=== PATIENT | female | born 1980 | race American Indian/Alaskan Native ===

== ENCOUNTER 2018-07-08 14:49 | Outpatient (CLI) | payer MEDICAID ==
[2018-07-08 15:46] LABS: Bilirubin,Urine NEG (Negative); Blood,Urine NEG (Negative); Color,Urine Straw (Yellow); Protein,Urine <15 mg/dL mg/dL (Negative); Urobilinogen,Urine < 2.0 mg/dL (<2.0)
[2018-07-08 15:48] LABS: WBC,Urine < 1.0 /HPF (0.0-6.0)
[2018-07-08] MEDS ORDERED: LACTATED RINGERS 1,000 ML IV ONE (20:00)
--- NOTE | 2018-07-08 20:42 | Progress Note ---
Assessment and Plan A: at 38 weeks, 4 days gestation. False labor. Urinary frequency and dysuria. P: Not in active labor. IV hydration provided. Reactive NST, BPP /. Rx Augmentin 500 mg po BID for 7 days. Advised daily movement counting. Signs of labor discussed with pt. Warning signs of late discussed with pt. Keep scheduled follow up appointment with [facility]. Subjective - Subjective Date of service: 07/08/18 Principal diagnosis: at 38 weeks, 4 days gestation Interval history: 38 weeks, 4 days gestation. Presents to rule out labor. Patient reports urinary frequency and dysuria, thinks she has a UTI. Patient reports active movement. Denies leaking of fluid or vaginal bleeding or vaginal discharge. Patient of [facility] and has a follow up appointment there on Tuesday (2 days). Denies fever, chills, malaise, or flank pain. Patient reports: movement normal, contractions, no loss of fluid, no vaginal bleeding Objective - Vital Signs Vital Signs: Vital Signs - 12hr 07/08/18 16:56 Temperature 98.1 F Respiratory 16 Rate - Exam Abdomen: Present: normal appearance, soft. Absent: distention, tenderness, guarding, rigidity Uterus: Present: normal, firm, fundal height above umbilicus. Absent: tenderness FHR: category 1 Uterine Contraction Monitor Mode: External Cervical Dilatation: 2 Cervical Effacement Percentage: 50 station: -3 Uterine Contraction Pattern: Irregular Uterine Contraction Intensity: Mild Extremities: normal - Labs Labs: Abnormal Labs 07/08/18 15:16 Ur Specific [place] 1.002 L Laboratory Results - last 24 hr 07/08/18 15:16 Urine Color Straw Urine Turbidity Clear Urine pH 7.0 Ur Specific [place] 1.002 L Urine Protein <15 mg/dl Urine Glucose (UA) Neg Urine Ketones Neg Urine Blood Neg Urine Nitrite Neg Urine Bilirubin Neg Urine Urobilinogen < 2.0 Ur Leukocyte Esterase Neg Urine WBC (Auto) < 1.0 Urine RBC (Auto) 2.0 U Epithel Cells (Auto) 1.0
--- NOTE | 2018-07-08 21:39 | Ultrasound Report ---
PROCEDURE: US OB BPP WO NON-STRESS TECHNIQUE: OB ultrasound for biophysical profile obtained. HISTORY: well being COMPARISONS: None FINDINGS: Single IUP visualized. Viable fetus with heart rate of 137 bpm. Biophysical profile is 8/8. IMPRESSION: Biophysical profile is 8/8.. This document is electronically signed by Viet Mack MD., Jul 08 2018 09:38:00 PM ET
--- NOTE | 2018-07-08 21:55 | Ultrasound Report ---
PROCEDURE: US OB FOLLOW UP TECHNIQUE: Real-time limited sonographic examination was performed for evaluation of placenta for ea ch fetus with image documentation (1 or more fetuses). HISTORY: EFW, SÁNCHEZ COMPARISONS: None . FINDINGS: FETUS IUP: Single living intrauterine . Position: Cephalic . Placental position: Anterior, without previa . Amniotic fluid volume: Normal Heart rate and rhythm: 137 BPM, Regular . anatomic survey: Not performed . MEASUREMENTS BPD: 9.3 cm corresponding to 37 weeks and 4 days . HC: 32.9 cm corresponding to 37 weeks and 2 days . AC: 34.4 cm corresponding to 38 weeks and 2 days . FL: 7.4 cm corresponding to 37 weeks and 6 days . Mean Gestational Age (composite criteria): 37 weeks and 5 days . Ratio biometry: Normal . Estimated Weight: 3362 grams +/- grams. ounces +/- .ounces. percentile. Interval growth: Appropriate . Estimated Due Date (earliest scan): 07/24/2018 . IMPRESSION: 1. Single living intrauterine gestation at approximately 37 weeks and 5 days . 2. EDC by US 07/24/2018 . This document is electronically signed by Amandeep Hdz MD., Jul 08 2018 09:53:22 PM ET
== END 2018-07-08 20:26 | disposition home or self-care (01) ==
LOC: TRG 14:49
PROVIDERS: ATTEND Obstetrics & Gynecology
DX: O26.893 Other specified pregnancy related conditions, third trimester (principal); N23 Unspecified renal colic; R25.2 Cramp and spasm; R35.0 Frequency of micturition; Z3A.38 38 weeks gestation of pregnancy
CPT/HCPCS: 59025; 76816; 76819; 81001; 96360; J7120

== ENCOUNTER 2018-07-20 19:14 | Inpatient (IN) | payer MEDICAID ==
[2018-07-20] MEDS ORDERED: STADOL IV PRN ×2 (22:10)
[2018-07-20] MEDS ORDERED: AMPICILLIN/NS 2 GM/100 ML 2 GM/100 ML BAG IV ONE (22:10)
[2018-07-20] MEDS ORDERED: BRETHINE IVP PRN (22:10)
[2018-07-20] MEDS ORDERED: MINERAL OIL PO PRN (22:10)
[2018-07-20] MEDS ORDERED: SUBLIMAZE IV PRN (22:10)
[2018-07-20] MEDS ORDERED: XYLOCAINE 2% INFILTRATI ONE (22:10)
[2018-07-20] MEDS ORDERED: BRETHINE SUB-Q PRN (22:10)
[2018-07-20] MEDS ORDERED: PITOCin/NS 30 UNIT/500ML 30 UNITS/500 ML BAG IV SCH (22:12)
[2018-07-20] MEDS ORDERED: PITOCin/NS 20 UNIT/1000ML DRIP 20 UNITS/1,000 ML BAG IV SCH (23:00)
[2018-07-20] MEDS: LACTATED RINGERS 1,000 ML IV SCH (23:05)
[2018-07-20 23:06] LABS: Hematocrit 35.9 % (30.3-42.9); Hemoglobin 11.9 gm/dl (10.1-14.3); Mean Corpuscular HGB Conc 33 % (30-34); Mean Corpuscular Volume 91 fl (79-97); Platelet Count 154 K/mm3 (140-440); Red Blood Count 3.96 M/mm3 (3.65-5.03); Red Cell Distribution Width 16.1 % (13.2-15.2)
[2018-07-21] MEDS: AMPICILLIN/NS 1 GM/50 ML 1 GM/50 ML BAG IV SCH ×2 (03:57→07:35)
[2018-07-21] MEDS: LACTATED RINGERS 1,000 ML IV SCH ×3 (06:10→18:02)
[2018-07-21] MEDS ORDERED: NARCAN 2 MG/2 ML IV PRN (06:56)
--- NOTE | 2018-07-21 06:56 | Anesthesia Consultation ---
Anesthesia Consult and Med Hx Date of service: 07/21/18 - Airway Anesthetic Teeth Evaluation: Good ROM Head & Neck: Adequate Mental/Hyoid Distance: Adequate Mallampati Class: Class I Intubation Access Assessment: Good - Pulmonary Exam CTA: Yes - Cardiac Exam Cardiac Exam: RRR - Pre-Operative Health Status ASA Pre-Surgery Classification: ASA2 Proposed Anesthetic Plan: Epidural - Pulmonary Hx Asthma: No - Cardiovascular System Hx Hypertension: No - Central Nervous System Hx Seizures: No Hx Psychiatric Problems: No - Endocrine Hx Renal Disease: No Hx Hypothyroidism: No Hx Hyperthyroidism: No - Hematic Hx Anemia: Yes Hx Sickle Cell Disease: No - Other Systems Hx Alcohol Use: No
[2018-07-21] MEDS ORDERED: fentaNYL-BUPIV 2 MCG/ML-0.125% 200 MCG/100 ML BAG EPIDURAL SCH (07:00)
--- NOTE | 2018-07-21 07:51 | Anesthesia Day of Surgery ---
Anesthesia Day of Surgery - Day of Surgery Patient Examined: Yes Patient H&P Reviewed: Yes Patient is NPO: Yes Beta Blockers: No Cardiac Clearance: No Pulmonary Clearance: No Cordell's Test: N/A
--- NOTE | 2018-07-21 07:54 | Post Anesthesia Evaluation ---
- Post Anesthesia Evaluation Patient Participated: Yes Airway Patent: Yes Stable Respiratory Function: Yes Nausea/Vomiting: No Temp > 96.8F: Yes Pain Manageable: Yes Adequeate Hydration: Yes Anesthesia Complications: No Block Receding Appropriately: Yes Patient on Ventilator: No
--- NOTE | 2018-07-21 09:55 | History and Physical Report ---
History of Present Illness Date of examination: 07/21/18 Date of admission: 07/20/18 20:03 Chief complaint: My water broke History of present illness: 37 yo AA Fe , ALYSSIA 07/18/18 (per pt; Records not available); 40 weeks 3 days, presents with report SROM 07/20 @17:40 clear fluid and contractions. Pt reports early and consistent care with [facility]. Records not available. Will request. Pt denies any any complications with . Reports unremarkable. GBS status unknown. Past History Past Medical History: no pertinent history Past Surgical History: no surgical history (Denies) [employer] History: other (Pt denies any STI or abnormal pap). denies: abnormal PAP smear, chlamydia, gonorrhea, hepatitis B, hepatitis C, herpes, HIV, syphilis, trichomonas Family/Genetic History: none Social history: no significant social history, single, lives with family, full code. denies: smoking, alcohol abuse, prescription drug abuse, IV drug use - Obstetrical History Expected Date of Delivery: 07/18/18 Actual Gestation: 40 Week(s) 3 Day(s) : 7 Para: 3 Hx # Term Pregnancies: 3 Number of Pregnancies: 0 Spontaneous Abortions: 0 Induced : 3 Number of Living Children: 3 Medications and Allergies Allergies Allergy/AdvReac Type Severity Reaction Status Date / Time No Known Allergies Allergy Unverified 07/08/18 14:51 Home Medications Medication Instructions Recorded Confirmed Last Taken Type No Known Home Medications [No 07/08/18 07/08/18 Unknown History Reported Home Medications] Active Meds: Active Medications Butorphanol Tartrate (Stadol) 2 mg IV Q2H PRN PRN Reason: Pain , Severe (7-10) Last Admin: 07/21/18 05:49 Dose: 2 mg Documented by: Butorphanol Tartrate (Stadol) 1 mg IV Q2H PRN PRN Reason: Pain, Moderate (4-6) Ephedrine Sulfate (Ephedrine Sulfate) 10 mg IV Q2M PRN PRN Reason: Hypotension Ephedrine Sulfate (Ephedrine Sulfate) 10 mg IV Q2M PRN PRN Reason: Hypotension Fentanyl (Sublimaze) 100 mcg IV Q2H PRN PRN Reason: Labor Pain Oxytocin/Sodium Chloride (Pitocin/Ns 20 Unit/1000ml Drip) 20 units in 1,000 mls @ 125 mls/hr IV DIRECT BRAXTON Oxytocin/Sodium Chloride (Pitocin/Ns 30 Unit/500ml) 30 units in 500 mls @ 4 mls/hr IV TITR BRAXTON; Protocol Last Admin: 07/20/18 23:06 Dose: 4 ml/hr, 4 mls/hr Documented by: Lactated Ringer's (Lactated Ringers) 1,000 mls @ 125 mls/hr IV DIRECT BRAXTON Last Admin: 07/21/18 06:10 Dose: 125 mls/hr Documented by: Ampicillin Sodium (Ampicillin/Ns 1 Gm/50 Ml) 1 gm in 50 mls @ 100 mls/hr IV Q4HR BRAXTON; Protocol Last Admin: 07/21/18 07:35 Dose: 100 mls/hr Documented by: Fentanyl/Bupivacaine/Sodium Chlor (Fentanyl-Bupiv 2 Mcg/Ml-0.125%) 200 mcg in 100 mls @ 12 mls/hr EPIDURAL TITR BRAXTON; Protocol Last Admin: 07/21/18 07:38 Dose: 12 mls/hr Documented by: Mineral Oil (Mineral Oil) 30 ml PO QHS PRN PRN Reason: Constipation Naloxone HCl (Narcan 2 Mg/2 Ml) 0.2 mg IV Q5M PRN PRN Reason: Respiratory sedation Terbutaline Sulfate (Brethine) 0.25 mg SUB-Q ONCE PRN PRN Reason: Hyperstimulation/Hypertonicity Terbutaline Sulfate (Brethine) 0.25 mg IVP ONCE PRN PRN Reason: Hyperstimulation/Hypertonicity Review of Systems Eyes: normal appearance Cardiovascular: no chest pain, no shortness of breath Respiratory: no shortness of breath Breasts: normal Gastrointestinal: abdominal pain (Contractions), no nausea, no vomiting, no diarrhea, no constipation Genitourinary: normal appearance, leakage of fluid (Reports SROM 07/20/18 @ 17:40), contractions, no vaginal bleeding, no genital sores Integumentary: no rash, no sores, no lesions - Vital Signs Vital signs: Vital Signs Temp Resp 98.7 F 18 07/20/18 23:42 07/20/18 23:42 Temp Pulse Resp BP Pulse Ox 98.7 F 71 18 112/76 100 07/20/18 23:42 07/21/18 09:45 07/20/18 23:42 07/21/18 09:34 07/21/18 09:45 - Physical Exam Breasts: Positive: normal Cardiovascular: Regular rate, Normal S1, Normal S2, No murmurs Lungs: Positive: Clear to auscultation, Normal air movement Abdomen: Positive: normal appearance, soft. Negative: distention Genitourinary (Female): Positive: normal external genitalia, normal perenium Vulva: both: normal Vagina: Positive: normal moisture Uterus: Positive: enlarged (gravid) Anus/Rectum: Positive: normal perianal skin Extremities: Positive: normal - Obstetrical FHR: category 1 Uterine Contraction Monitor Mode: External Cervical Dilatation: 7 (Buldging BOW. No fluid noted. AROM lg amt clear fluid with exam) Cervical Effacement Percentage: 90 station: -1 Uterine Contraction Frequency (min): 2-4 Uterine Contraction Pattern: Regular Uterine Tone Measurement Phase: Resting Uterine Contraction Intensity: Strong/Firm Results Result Diagrams: 07/20/18 22:35 Abnormal lab results 07/20/18 Range/Units 22:35 RDW 16.1 H (13.2-15.2) % All other labs normal. Assessment and Plan A: Term IUP at 40w3d Category 1 tracing GBS unknown Active labor Comfortable with epidural AROM 07/21/18 @ 0800. lg cl fluid P: Admit to L&D; Routine labor orders GBS prophylaxis Anticipate
[2018-07-21] MEDS ORDERED: PEPCID IV ONE (13:03)
[2018-07-21] MEDS ORDERED: BICITRA ONE (13:03)
[2018-07-21] MEDS ORDERED: REGLAN ONE (13:03)
[2018-07-21] MEDS ORDERED: ANCEF/STERILE WATER 2 GM/20 ML 2 GM/20 ML SYRINGE IV ONE (13:03)
[2018-07-21] MEDS ORDERED: MARCAINE 0.5% INFILTRATI ONE (13:09)
[2018-07-21] MEDS ORDERED: DIPRIVAN 10 MG/ML IV ONE ×2 (13:18→13:38)
[2018-07-21] MEDS ORDERED: VERSED ONE ×2 (13:27)
[2018-07-21] MEDS ORDERED: SUBLIMAZE ONE ×2 (13:27)
[2018-07-21] MEDS ORDERED: QUELICIN ONE (13:29)
[2018-07-21] MEDS ORDERED: TORADOL ONE (13:47)
[2018-07-21] MEDS ORDERED: ZOFRAN ONE (13:47)
[2018-07-21] MEDS ORDERED: BLOXIVERZ ONE (13:48)
[2018-07-21] MEDS ORDERED: ROBINUL ONE (13:48)
--- NOTE | 2018-07-21 14:02 | Progress Note ---
Assessment and Plan A: Term IUP at 40w3d GBS unknown Active labor Comfortable with epidural Category 3 tracing: Bradycardia P: Dr. Yair MD requested to come for Primary c/s d/t prolonged bradycardia. Explained to pt and family need for operative delivery. Pt verbalizes understanding. Subjective - Subjective Date of service: 07/21/18 Principal diagnosis: active labor Interval history: 37 yo AA Fe , ALYSSIA 07/18/18 (per pt; Records not available); 40 weeks 3 days, presents with report SROM 07/20 @17:40 clear fluid and contractions. Pt reports early and consistent care with [facility]. Records not available. Will request. Pt denies any any complications with . Reports unremarkable. GBS status unknown. Patient reports: movement normal, contractions (comfotable with epidural) Objective - Vital Signs Vital Signs: Vital Signs - 12hr 07/21/18 07/21/18 07/21/18 02:22 03:23 04:23 Pulse Rate 80 65 75 Blood Pressure 104/74 109/76 111/69 O2 Sat by Pulse Oximetry 07/21/18 07/21/18 07/21/18 06:23 07:17 07:19 Pulse Rate 88 74 96 H Blood Pressure 137/86 124/86 124/91 O2 Sat by Pulse Oximetry 07/21/18 07/21/18 07/21/18 07:20 07:21 07:23 Pulse Rate 85 80 88 Blood Pressure 127/81 132/84 O2 Sat by Pulse 99 Oximetry 07/21/18 07/21/18 07/21/18 07:25 07:27 07:29 Pulse Rate 81 89 83 Blood Pressure 132/81 126/72 113/69 O2 Sat by Pulse 97 Oximetry 07/21/18 07/21/18 07/21/18 07:30 07:31 07:33 Pulse Rate 90 81 102 H Blood Pressure 113/70 112/70 O2 Sat by Pulse 97 Oximetry 07/21/18 07/21/18 07/21/18 07:35 07:37 07:40 Pulse Rate 87 83 99 H Blood Pressure 110/66 106/60 O2 Sat by Pulse 100 99 Oximetry 07/21/18 07/21/18 07/21/18 07:43 07:45 07:48 Pulse Rate 76 83 77 Blood Pressure 98/60 97/57 O2 Sat by Pulse 99 Oximetry 07/21/18 07/21/18 07/21/18 07:50 07:54 07:55 Pulse Rate 74 75 79 Blood Pressure 109/57 O2 Sat by Pulse 99 100 Oximetry 07/21/18 07/21/18 07/21/18 07:58 08:00 08:05 Pulse Rate 83 77 69 Blood Pressure 102/58 O2 Sat by Pulse 100 100 Oximetry 07/21/18 07/21/18 07/21/18 08:10 08:15 08:20 Pulse Rate 71 72 81 Blood Pressure O2 Sat by Pulse 100 100 100 Oximetry 07/21/18 07/21/18 07/21/18 08:25 08:30 08:33 Pulse Rate 65 67 63 Blood Pressure 96/53 O2 Sat by Pulse 99 99 Oximetry 07/21/18 07/21/18 07/21/18 08:35 08:40 08:45 Pulse Rate 62 78 67 Blood Pressure O2 Sat by Pulse 100 99 99 Oximetry 07/21/18 07/21/18 07/21/18 08:50 08:55 09:00 Pulse Rate 79 71 66 Blood Pressure O2 Sat by Pulse 99 98 99 Oximetry 07/21/18 07/21/18 07/21/18 09:05 09:10 09:15 Pulse Rate 72 74 73 Blood Pressure 107/68 O2 Sat by Pulse 98 99 99 Oximetry 07/21/18 07/21/18 07/21/18 09:20 09:25 09:30 Pulse Rate 61 67 67 Blood Pressure O2 Sat by Pulse 99 97 98 Oximetry 07/21/18 07/21/18 07/21/18 09:34 09:35 09:40 Pulse Rate 65 70 69 Blood Pressure 112/76 O2 Sat by Pulse 98 98 Oximetry 07/21/18 07/21/18 07/21/18 09:45 09:50 09:55 Pulse Rate 71 72 68 Blood Pressure O2 Sat by Pulse 100 98 99 Oximetry 07/21/18 07/21/18 07/21/18 10:00 10:05 10:10 Pulse Rate 62 70 82 Blood Pressure 122/78 O2 Sat by Pulse 99 100 100 Oximetry 07/21/18 07/21/18 07/21/18 10:15 10:20 10:25 Pulse Rate 79 72 78 Blood Pressure O2 Sat by Pulse 100 100 100 Oximetry 07/21/18 07/21/18 07/21/18 10:30 10:34 10:35 Pulse Rate 80 77 79 Blood Pressure 129/80 O2 Sat by Pulse 100 99 Oximetry 07/21/18 07/21/18 07/21/18 10:40 10:45 10:50 Pulse Rate 73 72 80 Blood Pressure O2 Sat by Pulse 99 99 99 Oximetry 07/21/18 07/21/18 07/21/18 10:55 11:00 11:05 Pulse Rate 72 84 75 Blood Pressure 122/78 O2 Sat by Pulse 100 100 100 Oximetry 07/21/18 07/21/18 07/21/18 11:10 11:15 11:20 Pulse Rate 88 71 84 Blood Pressure O2 Sat by Pulse 100 100 99 Oximetry 07/21/18 07/21/18 07/21/18 11:25 11:30 11:33 Pulse Rate 82 76 78 Blood Pressure 115/75 O2 Sat by Pulse 100 100 Oximetry 07/21/18 07/21/18 07/21/18 11:35 11:40 11:45 Pulse Rate 89 75 83 Blood Pressure O2 Sat by Pulse 99 100 100 Oximetry 07/21/18 07/21/18 07/21/18 11:50 11:55 12:00 Pulse Rate 71 79 69 Blood Pressure O2 Sat by Pulse 100 100 99 Oximetry 07/21/18 07/21/18 07/21/18 12:04 12:05 12:10 Pulse Rate 90 83 76 Blood Pressure 114/68 O2 Sat by Pulse 99 99 Oximetry 07/21/18 07/21/18 07/21/18 12:15 12:20 12:25 Pulse Rate 83 80 70 Blood Pressure O2 Sat by Pulse 99 99 100 Oximetry 07/21/18 07/21/18 07/21/18 12:30 12:34 12:35 Pulse Rate 76 78 84 Blood Pressure 123/72 O2 Sat by Pulse 100 100 Oximetry 07/21/18 07/21/18 07/21/18 12:40 12:45 12:50 Pulse Rate 88 134 H 93 H Blood Pressure O2 Sat by Pulse 97 100 100 Oximetry 07/21/18 07/21/18 07/21/18 12:55 13:00 13:04 Pulse Rate 145 H 154 H 146 H Blood Pressure 99/57 O2 Sat by Pulse 100 100 Oximetry 07/21/18 13:05 Pulse Rate 156 H Blood Pressure O2 Sat by Pulse 99 Oximetry - Exam Breasts: normal Cardiovascular: Regular rate, Normal S1, Normal S2, No murmurs Abdomen: Present: normal appearance, soft, normal bowel sounds Vulva: both: normal FHR: category 2, category 3 FHR comments: With pushing efforts FHTs became bradycardic to the 60s. Pt repositioned side to side, O2 on, Pitocin off, FSE placed, Turb given Uterine Contraction Monitor Mode: External Cervical Dilatation: 8 Cervical Effacement Percentage: 80 station: -1 Uterine Contraction Frequency (min): 2-3 Uterine Tone Measurement Phase: Resting Uterine Contraction Intensity: Strong/Firm Extremities: normal Deep Tendon Reflex Grade: Normal +2 - Labs Labs: Abnormal Labs 07/20/18 07/21/18 22:35 13:41 RDW 16.1 H POC ABG pH 7.225 L POC ABG pCO2 50.8 H Laboratory Results - last 24 hr 07/20/18 07/20/18 07/20/18 22:35 22:35 22:35 WBC 8.7 RBC 3.96 Hgb 11.9 Hct 35.9 MCV 91 MCH 30 MCHC 33 RDW 16.1 H Plt Count 154 POC ABG pH POC ABG pCO2 POC ABG HCO3 POC ABG Total CO2 POC ABG O2 Sat POC ABG Base Excess FiO2 RPR Nonreactive Blood Type A POSITIVE Antibody Screen TNR MARTHA Antibody Screen Negative 07/21/18 13:41 WBC RBC Hgb Hct MCV MCH MCHC RDW Plt Count POC ABG pH 7.225 L POC ABG pCO2 50.8 H POC ABG HCO3 21.1 POC ABG Total CO2 23 POC ABG O2 Sat 16 POC ABG Base Excess -7 FiO2 21 RPR Blood Type Antibody Screen MARTHA Antibody Screen
[2018-07-21] MEDS ORDERED: NARCAN 0.4 MG/1 ML IV PRN ×2 (14:38→15:00)
[2018-07-21] MEDS ORDERED: SODIUM CHLORIDE FLUSH SYRINGE 10 ML IV PRN (15:00)
[2018-07-21] MEDS ORDERED: PITOCin/NS 20 UNIT/1000ML DRIP 20 UNITS/1,000 ML BAG IV SCH (15:00)
[2018-07-21] MEDS ORDERED: SODIUM CHLORIDE FLUSH SYRINGE 10 ML IV NR (15:00)
--- NOTE | 2018-07-21 15:00 | Event Note ---
Called to patient's room for distress. Upon reviewing NST, bradycardia was noted <60bpm for ~10 min. Patient was lying in left lateral decubitus with oxygen mask infusing. A discussion with patient, RUBÉN, Chela and patient's was had recommending a csection for distress. The HR had recovered to baseline for ~1min. The risks, benefits and alternatives were di scussed. As the nurses prepared for csection the HR again decreased to 50bpm and a STAT csection was called.
[2018-07-21] MEDS: DILAUDID IV PRN ×3 (15:15→15:48)
[2018-07-21] MEDS ORDERED: BENADRYL IV PRN (15:30)
[2018-07-21] MEDS ORDERED: TUCKS PAD TP PRN (15:30)
[2018-07-21] MEDS ORDERED: ZOFRAN IV PRN (15:30)
[2018-07-21] MEDS ORDERED: PHENERGAN PR PRN (15:30)
[2018-07-21] MEDS ORDERED: LANSINOH TP PRN (15:30)
[2018-07-21] MEDS ORDERED: PHENERGAN PO PRN (15:30)
[2018-07-21] MEDS ORDERED: DILAUDID IV PRN (15:30)
[2018-07-21] MEDS ORDERED: DILAUDID PCA 6MG/30ML IV SCH (16:00)
--- NOTE | 2018-07-21 16:08 | Operative Report ---
Operative Report Operative Report: PREOP Diagnosis 1. 40 3/7 weeks gestation 2. Category II/III heart tracings 3. bradycardia Postop Diagnosis 1. 40 3/7 weeks gestation 2. Category II/III heart tracings 3. bradycardia Procedure:Primary low-transverse section Findings 1. Viable male , vertex presentation, weighing 8lb 7oz, g APGARS 8 at 1 min, 9 at 5 min 2. Normal uterus, bilateral ovaries and tubes 3. Nuchal cord x 1 Surgeon 1. Marcella Mazariegos MD Anesthesia: 1. General anesthesia I/O: EBL: 400ml UOP: 100ml, clear urine Specimens removed: 1. Placenta -to pathology Complications: none Disposition: Patient taken to recovery room in stable condition INDICATIONS: The patient is a 37yo at 40 3/7weeks that was undergoing augmentation of labor when Category II/III heart tracings were noted the recommendation of primary section for dsistress was discussed and decision made to proceed to primary section. The patient was consented and the risks including but not limited to bleeding, infections, injury to surrounding organs, potential injury to mother/infant were discussed. All questions were answered. During the csection prep the heart tones fell to the 50s and a STAT csection was done. PROCEDURE: The patient was taken to the OR in stable condition. She was intubated using general anesthesia. A Woody catheter was previously in place. She wore SCDs for DVT prophylaxis. The patient with betadine and a time out was done. A P fannestiel incision was made in the skin. The fascia was incised and extended bluntly. The peritoneum was opened at the midline and a low-transverse incision made made in the uterus and extended laterally. The head was brought to the hysterotomy and head delivered, nuchal cord x 1 was reduced and body delivered. The scalp electrode was cut near it's base and cord clamped before handing infant to awaiting pecan grower staff. The placenta was delivered intact and 20 units of IV Pitocin was added to LR fluids. The uterus was cleaned of all clots. The uterus was repaired with 0-Vicryl in a running, locked stitch and an imbricating layer of the same suture was used. The rectus was reapproximated at the midline with 2-0Vicryl. The fascia was closed with 0 Vicryl. Subcutaneous layer reapproximated with 2-0 Vicryl. and Skin closed with 4-0 Vicryl. The patient tolerated the procedure well. All counts were correct x 3. Urine was noted to be clear at close of case. I was present and scrubbed for the entire procedure. The patient was taken to the recovery room in stable condition.
[2018-07-21] MEDS: CLEOCIN 600 MG/50 mL 600 MG/50 ML BAG IV SCH (18:02)
[2018-07-21] MEDS: ANCEF/NS 1 GM/50 ML 1 GM/50 ML BAG IV SCH (22:30)
[2018-07-22] MEDS: TORADOL IV PRN ×2 (02:34→09:29)
[2018-07-22] MEDS: CLEOCIN 600 MG/50 mL 600 MG/50 ML BAG IV SCH (02:37)
[2018-07-22] MEDS: LACTATED RINGERS 1,000 ML IV SCH (02:41)
[2018-07-22 05:33] LABS: Hematocrit 29.5 % (30.3-42.9); Hemoglobin 9.9 gm/dl (10.1-14.3)
[2018-07-22] MEDS: ANCEF/NS 1 GM/50 ML 1 GM/50 ML BAG IV SCH (07:59)
--- NOTE | 2018-07-22 09:15 | Progress Note ---
Assessment and Plan - Patient Problems (1) Status post Onset Date: 07/22/18 Current Visit: Yes Status: Resolved Plan to address problem: A: S/P C Section - POD #1 Doing well Acute blood loss anemia - stable P: Continue PROC Anticipate discharge in 24-48hrs (2) Acute blood loss anemia Onset Date: 07/22/18 Current Visit: Yes Status: Resolved Subjective - Subjective Date of service: 07/22/18 Principal diagnosis: s/p C Section - POD #1 Interval history: Pt is feeling well without complaints. She is tolerating a liquid diet without nausea or vomiting, ambulating and voiding without difficulty. Patient reports: appetite normal, voiding normally, pain well controlled, flatus, ambulating normally, no dizzy ambulation, no nauseated [place]: doing well, nursing well, bottle feeding Objective - Vital Signs Latest vital signs: Vital Signs Temp Pulse Resp BP BP Pulse Ox 07/22/18 04:44 98.5 F 103 H 20 110/65 96 07/22/18 01:08 100.4 F H 113 H 20 112/61 100 07/21/18 20:05 98.0 F 111 H 20 128/63 98 07/21/18 18:48 18 07/21/18 18:43 99.8 F H 113 H 20 115/69 07/21/18 16:39 98.6 F 112 H 14 127/67 07/21/18 16:35 98.3 F 07/21/18 15:20 133 H 14 116/59 07/21/18 15:05 145 H 14 107/62 07/21/18 14:50 97.9 F 140 H 14 106/52 07/21/18 14:35 129 H 92/38 07/21/18 14:30 129 H 96/41 07/21/18 14:25 131 H 14 95/46 07/21/18 14:20 97.7 F 129 H 14 110/50 100 07/21/18 13:05 156 H 99 07/21/18 13:04 146 H 99/57 07/21/18 13:00 154 H 100 07/21/18 12:55 145 H 100 07/21/18 12:50 93 H 100 07/21/18 12:45 134 H 100 07/21/18 12:40 88 97 07/21/18 12:35 84 100 07/21/18 12:34 78 123/72 07/21/18 12:30 76 100 07/21/18 12:25 70 100 07/21/18 12:20 80 99 07/21/18 12:15 83 99 07/21/18 12:10 76 99 07/21/18 12:05 83 99 07/21/18 12:04 90 114/68 07/21/18 12:00 69 99 07/21/18 11:55 79 100 07/21/18 11:50 71 100 07/21/18 11:45 83 100 07/21/18 11:40 75 100 07/21/18 11:35 89 99 07/21/18 11:33 78 115/75 07/21/18 11:30 76 100 07/21/18 11:25 82 100 07/21/18 11:20 84 99 07/21/18 11:15 71 100 07/21/18 11:10 88 100 07/21/18 11:05 75 122/78 100 07/21/18 11:00 84 100 07/21/18 10:55 72 100 07/21/18 10:50 80 99 07/21/18 10:45 72 99 07/21/18 10:40 73 99 07/21/18 10:35 79 99 07/21/18 10:34 77 129/80 07/21/18 10:30 80 100 07/21/18 10:25 78 100 07/21/18 10:20 72 100 07/21/18 10:15 79 100 07/21/18 10:10 82 100 07/21/18 10:05 70 122/78 100 07/21/18 10:00 62 99 07/21/18 09:55 68 99 07/21/18 09:50 72 98 07/21/18 09:45 71 100 07/21/18 09:40 69 98 07/21/18 09:35 70 98 07/21/18 09:34 65 112/76 07/21/18 09:30 67 98 07/21/18 09:25 67 97 07/21/18 09:20 61 99 07/21/18 09:15 73 99 Intake and Output 07/21/18 07/22/18 07/22/18 22:59 06:59 14:59 Intake Total 1558.271 0374 Output Total 1999 1899 Balance -526.667 -370 Intake: IV 6338.732 3528 ANCEF/NS 1 GM/50 ML 1 gm 50 In 50 ml @ 100 mls/hr IV Q8H BRAXTON Rx#:[id number] CLEOCIN 600 MG/50 mL 600 50 mg In 50 ml @ 100 mls/hr IV Q8H BRAXTON Rx#:[id number] Lactated Ringers 1,000 ml 237.805 2138 @ 125 mls/hr IV DIRECT BRAXTON Rx#:[id number] Oral 240 480 Output: Urine 1999 1899 Indwelling Catheter 800 1300 Void 600 Other: Total, Intake Amount 240 480 Total, Output Amount 800 600 Voiding Method Indwelling Catheter # Voids Void 1 - Exam Breasts: Present: deferred Abdomen: Present: normal appearance, soft Uterus: Present: normal, firm, fundal height below umbilicus Extremities: Present: normal Incision: Present: normal, dry, intact, dressed - Labs Labs: Abnormal lab results 07/21/18 07/22/18 Range/Units 13:41 04:51 Hgb 9.9 L (10.1-14.3) gm/dl Hct 29.5 L D (30.3-42.9) % POC ABG pH 7.225 L (7.35-7.45) POC ABG pCO2 50.8 H (35-45) Laboratory Tests 07/20/18 07/20/18 07/20/18 22:35 22:35 22:35 WBC 8.7 RBC 3.96 Hgb 11.9 Hct 35.9 MCV 91 MCH 30 MCHC 33 RDW 16.1 H Plt Count 154 POC ABG pH POC ABG pCO2 POC ABG HCO3 POC ABG Total CO2 POC ABG O2 Sat POC ABG Base Excess FiO2 RPR Nonreactive Blood Type A POSITIVE Antibody Screen TNR MARTHA Antibody Screen Negative 07/21/18 07/22/18 13:41 04:51 WBC RBC Hgb 9.9 L Hct 29.5 L D MCV MCH MCHC RDW Plt Count POC ABG pH 7.225 L POC ABG pCO2 50.8 H POC ABG HCO3 21.1 POC ABG Total CO2 23 POC ABG O2 Sat 16 POC ABG Base Excess -7 FiO2 21 RPR Blood Type Antibody Screen MARTHA Antibody Screen
[2018-07-22] MEDS ORDERED: M-M-R II VACCINE SUB-Q ONE (11:00)
[2018-07-22] MEDS ORDERED: NORCO 5/325 PO PRN (12:49)
[2018-07-22] MEDS: FEOSOL PO SCH (12:55)
[2018-07-22] MEDS: PERCOCET 5/325 PO PRN ×2 (12:55→20:37)
[2018-07-22] MEDS: IBUPROFEN PO PRN (17:47)
[2018-07-23] MEDS: PERCOCET 5/325 PO PRN (05:05)
[2018-07-23] MEDS: IBUPROFEN PO PRN (05:06)
[2018-07-23] MEDS: FEOSOL PO SCH (10:32)
--- NOTE | 2018-07-23 12:38 | Progress Note ---
Assessment and Plan - Patient Problems (1) Status post Onset Date: 07/22/18 Current Visit: Yes Status: Resolved Plan to address problem: A: S/P C Section - POD #2 Doing well Acute blood loss anemia - stable P: May go home today. (2) Acute blood loss anemia Onset Date: 07/22/18 Current Visit: Yes Status: Resolved Subjective - Subjective Date of service: 07/23/18 Principal diagnosis: s/p C Section - POD #2 Interval history: Pt is feeling well without complaints. She is tolerating a reg diet without nausea or vomiting, ambulating and voiding without difficulty. Patient reports: appetite normal, voiding normally, pain well controlled, flatus, ambulating normally, no dizzy ambulation, no nauseated [place]: doing well, nursing well, bottle feeding Objective - Vital Signs Latest vital signs: Vital Signs Temp Pulse Resp BP BP Pulse Ox 07/23/18 08:49 98.6 F 86 18 120/80 97 07/23/18 00:55 98.5 F 99 H 18 119/73 98 07/22/18 17:44 99.4 F 100 H 18 123/76 99 07/22/18 13:09 97.6 F 111 H 18 120/78 97 Intake and Output 07/22/18 07/23/18 07/23/18 22:59 06:59 14:59 Intake Total 240 Balance 240 Intake: Oral 240 Other: Total, Intake Amount 240 # Voids Void 1 - Exam Breasts: Present: deferred Abdomen: Present: normal appearance, soft Uterus: Present: normal, firm, fundal height below umbilicus Extremities: Present: normal Incision: Present: normal, dry, intact
--- NOTE | 2018-07-23 12:39 | Discharge Summary ---
Providers - Providers Date of Admission: 07/20/18 20:03 Date of discharge: 07/23/18 Attending physician: FRANKIE CHOWDARY Primary care physician: FRANKIE CHOWDARY Hospitalization Reason for admission: active labor, rupture of membranes, IUP at term Delivery: Procedure: section, primary low transverse Episiotomy: none Incision: normal, dry, intact Other procedures: none complications: none Discharge diagnosis: IUP at term delivered [place] baby: male Hospital course: Pt is a 37 yo AA Fe , ALYSSIA 07/18/18; 40 weeks 3 days who presented to L&D with SROM clear fluid, followed by contractions. She progressed in labor, but developed a non-reassuring tracing and was therefore delivered by an uncomplicated C Section. By POD #2 she was tolerating a reg diet without nausea or vomiting, ambulating and voiding without difficulty. She was therefore discharged to home on POD #2 in stable condition. Condition at discharge: Good Disposition: DC-01 TO HOME OR SELFCARE - Discharge Diagnoses (1) Status post Status: Resolved (2) Acute blood loss anemia Status: Resolved Plan - Discharge Medications Prescriptions: Ferrous Sulfate [Feosol 325 MG tab] 325 mg PO BID #60 tablet Ibuprofen [Motrin 800 MG tab] 800 mg PO Q8HR PRN 30 Days #30 tablet PRN Reason: Pain, Moderate (4-6) oxyCODONE /ACETAMINOPHEN [Percocet 5/325] 1 tab PO Q4HR PRN 14 Days #30 tab PRN Reason: Pain , Severe (7-10) Vit-Fe Fumar-FA [ Vitamin] 1 tab PO QDAY #30 tablet - Provider Discharge Summary Activity: routine, no sex for 6 weeks, no heavy lifting 4 weeks, no strenuous exercise Diet: routine Instructions: routine Additional instructions: [] Smoking cessation referral if applicable(refer to patient education folder for contact #) [] Refer to [facility] Booklet Call your doctor immediately for: * Fever > 100.5 * Heavy vaginal bleeding ( >1 pad per hour) * Severe persistent headache * Shortness of breath * Reddened, hot, painful area to leg or breast * Drainage or odor from incision. * Keep incision clean and dry at all times and follow doctor's instructions regarding bathing/showering - Follow up plan Follow up: FRANKIE CHOWDARY MD [Primary Care Provider] - 14 Days SOL FLOWER CNM [Advanced Practice Nurse] - 14 Days
[2018-07-23 17:36] VITALS: BP 126/82
== END 2018-07-23 17:00 | disposition home or self-care (01) | DRG 765 ==
LOC: TRG 19:14 → LD 20:03 → OB 07-21 17:37
PROVIDERS: ADMIT Obstetrics & Gynecology; ATTEND Obstetrics & Gynecology
PROC: 10D00Z1 Extraction of Products of Conception, Low, Open Approach (ICD-10-PCS; principal; 2018-07-21)
PROC: 4A033R1 Measurement of Arterial Saturation, Peripheral, Percutaneous Approach (ICD-10-PCS; 2018-07-21)
PROC: 10907ZC Drainage of Amniotic Fluid, Therapeutic from Products of Conception, Via Natural or Artificial Opening (ICD-10-PCS; 2018-07-21)
PROC: 3E0234Z Introduction of Serum, Toxoid and Vaccine into Muscle, Percutaneous Approach (ICD-10-PCS; 2018-07-22)
DX: O76 Abnormality in fetal heart rate and rhythm complicating labor and delivery (principal); D62 Acute posthemorrhagic anemia; O99.02 Anemia complicating childbirth; O69.1XX0 Labor and delivery complicated by cord around neck, with compression, not applicable or unspecified; Z37.0 Single live birth; Z3A.40 40 weeks gestation of pregnancy; Z23 Encounter for immunization
CPT/HCPCS: 36415; 82803; 85014; 85018; 85027; 86592; 86850; 86900; 86901; G0378; J0290; J0330; J0595; J0690; J1170; J1885; J2250; J2405; J2590; J2704; J2710; J2765; J3010; J3105; J7120

== ENCOUNTER 2018-10-27 09:33 | Outpatient (CLI) | payer MEDICAID, OTHER ==
--- NOTE | 2018-10-27 18:27 | Ultrasound Report ---
Transabdominal and endovaginal pelvic ultrasound INDICATION: Pelvic and perineal pain FINDINGS: The uterus measures 9.4 x 5.9 x 3.8 cm. Endometrial stripe is normal at 10 mm. Left ovary m easures 2.6 x 2.4 x 1.8 cm and appears normal. The right ovary measures 3.2 x 1.9 x 3.1 cm and appear s normal as well. There is no free fluid. There is no IUD identified within the uterine cavity. No si gnificant abnormality. Signer Name: Alvin Slaughter MD Signed: 10/27/2018 6:23 PM Workstation Name: [id number]
== END 2018-10-27 09:34 | disposition home or self-care (01) ==
LOC: US 09:33
PROVIDERS: ATTEND Advanced Practice Midwife
DX: R10.2 Pelvic and perineal pain (principal)
CPT/HCPCS: 76830; 76856

== ENCOUNTER 2019-01-16 07:30 | Day surgery (SDC) | payer OTHER ==
[2019-01-16] MEDS ORDERED: LACTATED RINGERS 1,000 ML IV SCH (08:00)
--- NOTE | 2019-01-16 08:34 | Anesthesia Consultation ---
Anesthesia Consult and Med Hx Date of service: 01/16/19 - Airway Anesthetic Teeth Evaluation: Good ROM Head & Neck: Adequate Mental/Hyoid Distance: Adequate Mallampati Class: Class II Intubation Access Assessment: Good - Pulmonary Exam CTA: Yes - Cardiac Exam Cardiac Exam: RRR - Pre-Operative Health Status ASA Pre-Surgery Classification: ASA1 Proposed Anesthetic Plan: General - Pulmonary Hx Asthma: No - Cardiovascular System Hx Hypertension: No - Central Nervous System Hx Seizures: No Hx Psychiatric Problems: No - Endocrine Hx Renal Disease: No Hx Hypothyroidism: No Hx Hyperthyroidism: No - Hematic Hx Anemia: Yes Hx Sickle Cell Disease: No - Other Systems Hx Alcohol Use: Yes Hx Cancer: No
--- NOTE | 2019-01-16 08:34 | Anesthesia Day of Surgery ---
Anesthesia Day of Surgery - Day of Surgery Patient Examined: Yes Patient H&P Reviewed: Yes Patient is NPO: Yes
[2019-01-16] MEDS ORDERED: HYDROmorphone 1 MG/1 ML INJ IV PRN (08:36)
[2019-01-16] MEDS ORDERED: ONDANSETRON 4 MG/2 ML INJ IV PRN (08:36)
--- NOTE | 2019-01-16 08:57 | Short Stay Summary ---
Short Stay Documentation Date of service: 01/16/19 Narrative H&P: Pt is a 38yo BF LMP 01/05/19 presents for surgical evaluation and removal of displaced IUD. She had the IUD placed in 2005, and has been missing since then. She recently got and gave 07/21/18. She complains of pelvic pain, and pelvic u/s showed No IUD within the uterine cavity, but CT Scan showed the IUD overlying the pelvis. She is now scheduled for a Hysteroscopy and possible Laparoscopy for displaced IUD. - History Principal diagnosis: Displaced IUD H&P: obtained from office Past Medical History: No medical history Past Surgical History: Social history: no significant social history, single - Allergies and Medications Current Medications: Allergies No Known Allergies Allergy (Verified 01/15/19 10:12) Home Medications Medication Instructions Recorded Confirmed Last Taken Type No Known Home Medications [No 01/15/19 01/15/19 Unknown History Reported Home Medications] Active Medications Hydromorphone HCl (Dilaudid) 0.5 mg IV Q10MIN PRN PRN Reason: Pain , Severe (7-10) Lactated Ringer's (Lactated Ringers) 1,000 mls @ 125 mls/hr IV DIRECT BRAXTON Last Admin: 01/16/19 08:20 Dose: 125 mls/hr Documented by: Midazolam HCl (Versed) 2 mg IV PREOP NR Stop: 01/16/19 23:59 Ondansetron HCl (Zofran) 4 mg IV ONCE PRN PRN Reason: Nausea And Vomiting - Physical exam General appearance: no acute distress Integumentary: no rash HEENT: Atraumatic Lungs: Clear to auscultation Breasts: deferred Heart: Regular rate Gastrointestinal: normal Female Genitourinary: deferred Rectal Exam: deferred Extremities: no ischemia, No edema Neurological: Normal gait, Normal speech - Brief post op/procedure progress note Date of procedure: 01/16/19 Pre-op diagnosis: Displaced (Malpositioned) IUD Post-op diagnosis: same Procedure: 1. Hysteroscopy 2. Laparoscopic retrieval of displaced IUD Anesthesia: GETA Findings: Normal endometrial cavity with no evidence of IUD. Normal uterus with pelvic adhesions. Normal tubes and ovaries bilaterally. Displaced IUD located within the right ovarian fossa - removed without difficulty. Surgeon: FRANKIE CHOWDARY Estimated blood loss: minimal Pathology: list (IUD) Specimen disposition: to lab Condition: stable - Hospital course Hospital course: Unremarkable. - Disposition Condition at discharge: Good Disposition: DC-01 TO HOME OR SELFCARE - Discharge Diagnoses (1) Malpositioned intrauterine device (IUD) Status: Chronic Qualifiers: Encounter type: initial encounter Qualified Code(s): T83.32XA - Displacement of intrauterine contraceptive device, initial encounter Short Stay Discharge Plan Activity: no restrictions Diet: regular Wound: open to air, keep clean and dry Follow up with: RYAN RUBIO [Primary Care Provider] - 7 Days FRANKIE CHOWDARY MD [Staff Physician] - 14 Days Prescriptions: HYDROcodone/APAP 5-325 [Erskine 5/325] 1 each PO Q6HR PRN #20 tablet PRN Reason: Pain
[2019-01-16] MEDS ORDERED: ceFAZolin/Water 2 GM/20 ML 2 GM/20 ML SYRINGE IV NR (09:00)
[2019-01-16] MEDS ORDERED: MIDAZOLAM 2 MG/2 ML INJ IV NR (09:00)
[2019-01-16] MEDS ORDERED: fentaNYL 100 MCG/2 ML INJ ONE (09:13)
[2019-01-16] MEDS ORDERED: LIDOCAINE MPF (2%) 20 MG/1 ML VIAL 5 ML ONE (09:13)
[2019-01-16] MEDS ORDERED: PROPOFOL 200 MG/20 ML VIAL IV ONE (09:13)
[2019-01-16] MEDS ORDERED: ROCURONIUM 50 MG/5 ML INJ IV ONE (09:15)
[2019-01-16 09:47] LABS: Hematocrit 37.5 % (30.3-42.9); Hemoglobin 12.3 gm/dl (10.1-14.3)
[2019-01-16] MEDS ORDERED: SILVER NITRATE APPLICATOR 1 EA TP ONE (10:05)
[2019-01-16] MEDS ORDERED: BUPIVACAINE/PF (0.5%) 5 MG/1 ML 10 ML VIAL INFILTRATI ONE (10:05)
[2019-01-16] MEDS ORDERED: dexAMETHasone 20 MG/5 ML VIAL ONE (10:08)
[2019-01-16] MEDS ORDERED: SODIUM CHLORIDE 0.9% IRRIG SOLN 2000 ML IR ONE (10:08)
[2019-01-16] MEDS ORDERED: ONDANSETRON 4 MG/2 ML INJ ONE (10:08)
[2019-01-16] MEDS ORDERED: GLYCOPYRROLATE 0.4 MG/2 ML INJ ONE (10:30)
[2019-01-16] MEDS ORDERED: NEOSTIGMINE 10MG/10 ML INJ MDV ONE (10:30)
[2019-01-16] MEDS ORDERED: KETOROLAC 30 MG/1 ML INJ ONE (10:30)
--- NOTE | 2019-01-16 10:51 | Operative Report ---
Operative Report Operative Report: Date of procedure: 01/16/2019 Pre-operative diagnosis: Displaced (Malpositioned) IUD Post-operative diagnosis: Same Procedure name(s): 1. Hysteroscopy 2. Laproscopic retrieval of IUD Surgeon: Marlon Velasquez MD Plastics Worker: None Anesthesia: Gen. endotracheal intubation EBL: Minimal Findings: A normal endometrial cavity with no visual evidence of IUD. A normal uterus with pelvic adhesions. Normal fallopian tubes and ovaries bilaterally. Displaced IUD located within the right ovarian fossa - removed without difficulty. Procedure: After the patient was correctly identified, she was prepped and draped in the usual sterile fashion and placed in the dorsolithotomy position. First the bladder was emptied using a straight catheter, then the speculum was placed in the vaginal vault and the anterior lip of the cervix was grasped with single-tooth tenaculum. The Hysteroscope was introduced into the endometrial cavity, and there was no visual evidence of the IUD. The Hysteroscope was then removed, the uterine manipulator was then placed and the tenaculum and speculum were removed. Attention was then turned to the abdomen where first a periumbilical incision was made using the skin knife, and the Optiview trocar was inserted under direct visualization. After an adequate amount of abdominal insufflation, visualization of the pelvic organs found the uterus to be normal with omental adhesions draping the fundus of the uterus. A suprapubic incision was made through which a 5 mm trochar was placed in order to aid in manipulation of the pelvic organs. The fallopian tubes and ovaries were normal bilaterally, but the IUD string was visible in the right ovarian fossa. It was grasped and lead to the IUD which was teased out from the omentum, and removed through the 5mm port. At this point the procedure was considered complete. All instruments removed from the abdomen. The abdomen was deflated, and the periumbilical incision was closed using 0 Vicryl suture in a [id number] configuration of the fascia, followed by 4-0 Monocryl suture in a sub-cuticular fashion on the skin. The suprapubic incision was closed in similar fashion. Each incision was infiltrated using 0.5% Marcaine Solution. The uterine manipulator was removed, the patient tolerated the procedure well and was transferred to recovery room in stable condition.
[2019-01-16] MEDS ORDERED: HYDROcodone/ACETAMINOPHEN 5-325 MG TAB PO PRN (11:17)
[2019-01-16] MEDS ORDERED: HYDROcodone/ACETAMINOPHEN 5-325 MG TAB ONE (11:23)
[2019-01-16 11:35] VITALS: BP 119/76
--- NOTE | 2019-01-16 13:55 | Post Anesthesia Evaluation ---
- Post Anesthesia Evaluation Patient Participated: Yes Airway Patent: Yes Stable Respiratory Function: Yes Nausea/Vomiting: No Temp > 96.8F: Yes Pain Manageable: Yes Adequeate Hydration: Yes Anesthesia Complications: No
== END 2019-01-16 07:31 | disposition home or self-care (01) ==
LOC: OR 07:30
PROVIDERS: ATTEND Obstetrics & Gynecology
DX: T83.32XA Displacement of intrauterine contraceptive device, initial encounter (principal); Z79.899 Other long term (current) drug therapy; Z98.891 History of uterine scar from previous surgery; Z90.710 Acquired absence of both cervix and uterus; Z72.89 Other problems related to lifestyle; Z80.1 Family history of malignant neoplasm of trachea, bronchus and lung; Z83.3 Family history of diabetes mellitus; Z98.890 Other specified postprocedural states; Z82.49 Family history of ischemic heart disease and other diseases of the circulatory system; Y83.8 Other surgical procedures as the cause of abnormal reaction of the patient, or of later complication, without mention of misadventure at the time of the procedure; Y92.89 Other specified places as the place of occurrence of the external cause
CPT/HCPCS: 36415; 49329; 81025; 85014; 85018; 88300; A4217; J0690; J1100; J1885; J2405; J2704; J2710; J3010; J7120; 88302